=== PATIENT | male | born 1985 | race Hispanic/Latino ===

== ENCOUNTER 2017-10-09 09:02 | Emergency (ER) | payer MEDICAID ==
[2017-10-09 09:12] VITALS: BP 150/91; PULSE 110; RESP 20; TEMP 98.1; O2SAT 96
--- NOTE | 2017-10-09 10:00 | C.PDOC ---
History Of Present Illness 32 year old male with PMHx of seizures presents to the ED for psych clearance in order to return to his disability program. Patient is currently taking kepra and dilantin for his seizures. Patient denies SI/HI, hallucinations, feeling depressed at this time. Time Seen by Provider: 10/09/17 09:27 Chief Complaint (Nursing): Psychiatric Evaluation History Per: Patient History/Exam Limitations: no limitations Onset/Duration Of Symptoms: Hrs Current Symptoms Are (Timing): Gone Suicide/Self Injury Attempted (Context): None Modifying Factor(s): None Severity: None Associated Symptoms: denies: Depression, Suicidal Thoughts, Suicidal Plan Involuntary Hold By: None Recent travel outside of the [place]: Yes Additional History Per: Patient Past Medical History Reviewed: Historical Data, Nursing Documentation, Vital Signs Vital Signs: Last Vital Signs Temp 98.1 F 10/09/17 09:08 Pulse 110 H 10/09/17 09:08 Resp 20 10/09/17 09:08 BP 150/91 H 10/09/17 09:08 Pulse Ox 96 10/09/17 10:00 - Medical History PMH: Seizures Surgical History: No Surg Hx Family History: States: Unknown Family Hx - Social History Hx Alcohol Use: No Hx Substance Use: No Review Of Systems Constitutional: Negative for: Fever, Chills Cardiovascular: Negative for: Chest Pain Respiratory: Negative for: Cough, Shortness of Breath Gastrointestinal: Negative for: Nausea, Vomiting, Abdominal Pain Skin: Negative for: Rash Neurological: Negative for: Weakness, Numbness Psych: Negative for: Depression, Suicidal ideation Physical Exam - Physical Exam Appears: Non-toxic, No Acute Distress Skin: Normal Color, Warm, Dry Head: Atraumatic, Normacephalic Eye(s): bilateral: Normal Inspection Nose: No Discharge, No Deformity Oral Mucosa: Moist Neck: Normal ROM, Supple Chest: Symmetrical Cardiovascular: Rhythm Regular, No Murmur Respiratory: Normal Breath Sounds, No Rales, No Rhonchi, No Wheezing Gastrointestinal/Abdominal: Soft, No Tenderness, No Guarding, No Rebound Extremity: Normal ROM, No Pedal Edema, No Calf Tenderness, No Deformity, No Swelling Neurological/Psych: Oriented x3, Normal Speech, Normal Cognition Gait: Steady ED Course And Treatment O2 Sat by Pulse Oximetry: 96 (On RA) Pulse Ox Interpretation: Normal Medical Decision Making Medical Decision Making: Discussed case with Nuha from crisis who gave the patient a referral to go see Dr. Cunha as well as some rouaugusto for a help center to follow up with. Patient was d/c home with a diagnosis of psych clearance. Disposition Discussed With .: Joyce Cunha - Disposition Referrals: [facility] [Outside] Disposition: HOME/ ROUTINE Disposition Time: 09:58 Condition: STABLE Additional Instructions: follow up with doctor in 2 days call to make an appointment continue medications at home return to ER if symptoms worsens or progress Instructions: Medical Clearance for Psychiatric Care (ED) Forms: [facility] (Swiss), General Discharge Instructions - Clinical Impression Clinical Impression: Psychiatric care - Scribe Statement The provider has reviewed the documentation as recorded by the Scribe Evangelist Beckham All medical record entries made by the Scribe were at my direction and personally dictated by me. I have reviewed the chart and agree that the record accurately reflects my personal performance of the history, physical exam, medical decision making, and the department course for this patient. I have also personally directed, reviewed, and agree with the discharge instructions and disposition.
== END 2017-10-09 10:07 | disposition home or self-care (01) ==
LOC: C.ER 09:02
DX: Z00.8 Encounter for other general examination (principal)

== ENCOUNTER 2018-08-27 10:17 | Emergency (ER) | payer MEDICAID ==
[2018-08-27 10:29] VITALS: O2SAT 92
[2018-08-27] MEDS ORDERED: Sodium Chloride 0.9% 1,000 ML IV SCH (10:45)
[2018-08-27 10:53] LABS: VENOUS BLOOD GAS BASE EXCESS -1.2 mmol/L (0.0-2.0); VENOUS BLOOD GAS PCO2 39 mmHg (40-60); VENOUS BLOOD GAS PO2 29 mm/Hg (30-55); VENOUS BLOOD PH 7.39 (7.32-7.43)
[2018-08-27] MEDS ORDERED: Dexamethasone 10 MG in Sodium Chloride 0.9% 50 ML IV STA (11:00)
[2018-08-27] MEDS ORDERED: Piperacillin/Tazobact 3.375 GM in Sodium Chloride 100 ML IVPB STA (11:01)
[2018-08-27 11:04] LABS: BASO # 0.1 K/uL (0.0-0.2); BASO % 0.3 % (0.0-2.0); HEMOGLOBIN 14.8 g/dL (12.0-18.0); LYMPH # 1.1 K/uL (1.0-4.3); LYMPH % 3.4 % (20.0-40.0); MEAN CELL VOLUME 84.5 fL (80.0-94.0); MEAN CORPUSCULAR HEMOGLOBIN 28.1 pg (27.0-31.0); MEAN CORPUSCULAR HGB CONC 33.2 g/dL (33.0-37.0); MEAN PLATELET VOLUME 9.5 fL (7.2-11.7); MONO # 2.7 K/uL (0.0-0.8); MONO % 8.6 % (0.0-10.0); NEUT # 27.3 K/uL (1.8-7.0); NEUT % 87.7 % (50.0-75.0); NRBC % 0.2 % (0.0-2.0); PLATELET COUNT 278 K/uL (130-400); RBC 5.26 Mil/uL (4.40-5.90); RED CELL DISTRIBUTION WIDTH 13.8 % (11.5-14.5); WHITE BLOOD COUNT 31.1 K/uL (4.8-10.8)
--- NOTE | 2018-08-27 11:08 | C.PDOC ---
History Of Present Illness 33-year-old male with a history of seizures presents to the ED for evaluation of subjective fevers, chills, neck swelling, and sore throat x1 week. Per family the patient had 3 episodes of seizures that began last night. EMS was called 1 day ago, patient was not taken to the hospital. The patient reports he has noticed changes in his voice and difficulty swallowing. Denies nausea, vomiting, diarrhea, abdominal pain, and any other associated symptoms. Time Seen by Provider: 08/27/18 10:39 Chief Complaint (Nursing): Seizure History Per: Patient History/Exam Limitations: no limitations Recent Seizure Activity Began: Days Ago: (x1) Number Of Seizures: Multiple Length Of Seizures (Duration): Unknown Quality Of Seizure: Generalized Recent travel outside of the [place]: No Past Medical History Reviewed: Historical Data, Nursing Documentation, Vital Signs Vital Signs: Last Vital Signs Temp 104.1 F H 08/27/18 10:25 Pulse 154 H 08/27/18 10:25 Resp 26 H 08/27/18 10:25 BP 183/86 H 08/27/18 10:25 Pulse Ox 92 L 08/27/18 10:25 - Medical History PMH: Seizures Family History: States: Unknown Family Hx - Social History Hx Alcohol Use: No Hx Substance Use: No - Immunization History Hx Tetanus Toxoid Vaccination: No Hx Influenza Vaccination: No Hx Pneumococcal Vaccination: No Review Of Systems Except As Marked, All Systems Reviewed And Found Negative. Constitutional: Positive for: Fever (subjective. ), Chills ENT: Positive for: Throat Pain (sore. ), Other ((+) changes in voice. (+) difficulty swallowing. ) Gastrointestinal: Negative for: Nausea, Vomiting, Abdominal Pain, Diarrhea Musculoskeletal: Positive for: Neck Pain (swelling. ) Physical Exam - Physical Exam Appears: Toxic, Other (morbidly obese. mild distress. ) Skin: Warm, Diaphoretic, Other Head: Atraumatic, Normacephalic Eye(s): bilateral: Normal Inspection Oral Mucosa: Dry Throat: Other (limited exam due to obese presentation. visualized pharynx is intact. ) Neck: Normal ROM, Supple, Other ((+) diffuse swelling. (+) right-sided erythema. (+) no induration. ) Chest: Symmetrical, No Deformity Cardiovascular: Rhythm Regular, No Murmur Respiratory: Normal Breath Sounds, No Rales, No Rhonchi, No Wheezing Gastrointestinal/Abdominal: Normal Exam, Soft, No Tenderness Extremity: Bilateral: Atraumatic, Normal ROM Neurological/Psych: Oriented x3, Normal Cranial Nerves, Normal Motor, Normal Sensation, Other (muffled speech.) Gait: Other (unable to ambulate due to weakness.) ED Course And Treatment - Laboratory Results Result Diagrams: 08/27/18 10:50 08/27/18 10:50 Lab Interpretation: Abnormal ECG Rhythm: Sinus Tachycardia Interpretation Of ECG: Nonspecific T wave abnormalities. No ST evaluation Rate From EC O2 Sat by Pulse Oximetry: 92 (RA) Critical Care Time - Critical Care Note Total Time (in mins): 60 Documented critical care: time excludes all time spent performing seperately billable procedures. Medical Decision Making Medical Decision Making: Plan: -Blood sent. -EKG -CXR Portable. -CT Neck Soft tissue w/ contrast. -Decadron -Lactated Ringers -Ofirmev -Tylenol -Zosyn Progress/Update: 11:15am : Spoke with Dr. Koroma for a consult, discussed suspected abscess vs Lester angina, recommended CT of neck and call back. 11:42am : Pt went into respiratory distress, developed seizure, and went into cardiac arrest. CPR immediately started, anesthesiologist Dr. Gilbert called for help for intubation. Pt was bagged with 100% oxygen. Anesthesiologist Dr. Gilbert intubated pt using glidescope, excessive edema around vocal cords, CPR continued, no pulse during CPR. Pt went from pulses electrical activity to asystole and was pronounced at 12:16pm. Family notified, PCP Dr. Leslye Woodall contacted. Disposition Counseled Patient/Family Regarding: Diagnosis - Disposition Disposition: WITH WITHOUT AUTOPSY Disposition Time: 12:16 Condition: Forms: [facility] (Albanian) - Clinical Impression Clinical Impression: Ludwigs angina, Sepsis, Cardiopulmonary arrest, Morbid obesity, Cellulitis of neck - Scribe Statement The provider has reviewed the documentation as recorded by the Scribe (Sho Eagle) Provider Attestation: All medical record entries made by the Scribe were at my direction and personally dictated by me. I have reviewed the chart and agree that the record accurately reflects my personal performance of the history, physical exam, medical decision making, and the department course for this patient. I have also personally directed, reviewed, and agree with the discharge instructions and disposition.
[2018-08-27] MEDS ORDERED: Iodixanol 320 MG/ML 100 ML BOTTLE IV ONE (11:13)
[2018-08-27 11:15] LABS: INR 1.8; PROTHROMBIN TIME 19.8 SECONDS (9.7-12.2)
[2018-08-27] MEDS ORDERED: Piperacillin/Tazobact 3.375 gm 100 ML IVPB ONE (11:23)
[2018-08-27] MEDS ORDERED: LACTATED RINGER S ONE (11:23)
[2018-08-27] MEDS ORDERED: Acetaminophen IV 1,000 MG in Premixed IV 1 EA IV ONE (11:23)
[2018-08-27 11:24] LABS: ALBUMIN 4.3 g/dL (3.5-5.0); ALT/SGPT 86 U/L (21-72); AST/SGOT 102 U/L (17-59); BLOOD UREA NITROGEN 14 mg/dL (9-20); CALCIUM 9.1 mg/dl (8.6-10.4); GFR NON-AFRICAN AMERICAN > 60
[2018-08-27 11:40] LABS: ANISOCYTOSIS SLIGHT; BANDS 8 % (0-2); GIANT PLATELETS PRESENT; LYMPHOCYTE 4 % (20-40); MONOCYTE 8 % (0-10); NEUTROPHIL 80 % (50-75); PLATELET ESTIMATE NORMAL (NORMAL); TOTAL CELLS COUNTED 100
[2018-08-27 11:41] LABS: LARGE PLATELETS PRESENT; POLYCHROMIC SLIGHT; TOXIC GRANULATION PRESENT
[2018-08-27] MEDS ORDERED: Sodium Bicarbonate (8.4%) 50 mEq Vial ONE (11:55)
--- NOTE | 2018-08-27 11:58 | PCM.ANES ---
Anesthesia Emergent Intubation - Diagnosis Working Diagnosis:: cardiac arrest - Consult Reason for Consult:: emergent endotracheal intubation - Intubation Attempts Previous Number of Intubation Attempts:: 1 - Pre-Intubation Vital Signs Oxygen Delivery Method: Ambu-Bag Level Of Consciousness: Comatose/Unresponsive - Method of Intubation Intubation Method: Oral ETT ETT Size: 7 Lipline@: 23 Easy: No (edematous airway and vocal cord) Atramatic: Yes - Intubation Devices Crimora Scope Used: Yes (3, no rigid glidescope stylet avaiable in ED, retrieved from OR. ) - Placement Confirmation Breath Sounds Present & Equal Bilaterally: Yes Gurgling Sounds Not Audible at Epigastrum: Yes Positive EtCO2: Yes Portable CXR: Yes Recommendations: Ventilator, Chest X Ray, ABG
--- NOTE | 2018-08-27 14:24 | RAD ---
Date of service: 08/27/2018 HISTORY: Sepsis Patient COMPARISON: Comparison is made with 08/27/2018 FINDINGS: LUNGS: Suboptimal assessment due to the patient's body habitus. No significant interval change in the lungs. PLEURA: No significant pleural effusion identified, no pneumothorax apparent. CARDIOVASCULAR: No aortic atherosclerotic calcification present. Normal cardiac size. No pulmonary vascular congestion. OSSEOUS STRUCTURES: No significant abnormalities. VISUALIZED UPPER ABDOMEN: Normal. OTHER FINDINGS: None. IMPRESSION: Limited study due to the patient's body habitus. Diffuse haziness in the left lung more prominent in the lower portion.
[2018-08-27 17:33] VITALS: TEMP 103.1
--- NOTE | 2018-08-28 17:59 | CARD ---
APPROVED REPORT Date of service: 08/27/2018 EKG Measurement Heart [id number] <Conclusion> Sinus tachycardia Nonspecific ST and T wave abnormality Abnormal ECG
--- NOTE | 2018-08-28 19:44 | CON ---
DATE: 08/28/2018 I was called yesterday at 11:14 a.m. about this patient. The ER doctor spoke to me. He said that the patient has swelling in the neck on the right and throat pain on the right. He said that the patient can tolerate p.o. liquids and is in no respiratory distress. At that point, I told the ER doctor to obtain a CAT scan of the neck and call me as soon as it was done to see if the patient has a neck abscess. I called back the ER at 12:08 p.m. the same day to see if the CAT scan was done, they informed me that the patient was being coded. I spoke to the ER physician, the ER physician told me that he feels like it is possible Lester's angina; however, that was never relayed to me in our previous conversation. It should also be noted that the ER physician told me that the patient coded at 11:40 and I was called at 11:15, that was more than 25 minutes away from the hospital, so I would not have been able to come to see the patient before he coded. Upon questioning, the ER doctor stated that the patient could tolerate p.o. He could move his tongue. He did not notice that the floor of mouth was raised. I spoke to the anesthesiologist, who intubated the patient, who states that the tongue including the base of tongue was soft and not firm as he does not notice it is being pushed back to the back of the throat and he was able to insert his plate into the mouth in order to intubate the patient without a problem. Therefore, I do not believe that the patient had Lester's angina. Additionally, the ER doctor indicated to me that the patient started all of a sudden spitting of phlegm, then quickly went into stridor and very rapidly went into respiratory arrest. This happened in a matter of a few minutes. Again, this is not consistent with someone who has Lester's angina, stridor is usually a vocal cord issue, not a base of tongue issue. Most likely, what happened was that the patient had a deep neck abscess that suddenly opened up into his throat and the pus poured into his throat and he was coughing up phlegm. Next, the pus made his vocal cords go into spasm, which is why he became stridorous and went into arrest. I do not believe from the history and the physical that was described to me by the people who saw the patient that the patient has Lester's angina. Additionally, the pain that the patient was describing was only on one side of the neck. Dameon Koroma MD
[2018-08-30 11:13] VITALS: BP 156/97; PULSE 148; RESP 38
== END 2018-08-27 19:55 ==
LOC: C.ER 10:17
DX: I46.9 Cardiac arrest, cause unspecified (principal); A41.9 Sepsis, unspecified organism; K12.2 Cellulitis and abscess of mouth; L03.221 Cellulitis of neck; R56.9 Unspecified convulsions; E66.01 Morbid (severe) obesity due to excess calories
CPT/HCPCS: 71045; 80053; 82803; 83735; 84100; 84145; 84484; 85025; 85610; 85730; 87040; 92950; 93005; 96365; 99285; J0131; J0171; J1100; J2543; J7050; J7120